=== PATIENT | female | born 1980 | race Caucasian/White ===

== ENCOUNTER 2019-07-12 12:07 | Emergency (ER) | payer OTHER, MEDICAID, SELFPAY ==
[2019-07-12 12:05] VITALS: BP 146/86; PULSE 107; RESP 20; TEMP 37; O2SAT 100
--- NOTE | 2019-07-12 12:14 | ED.GENADULT ---
HPI - General Adult General Chief complaint: Toxicology Problem Stated complaint: Light headed Time Seen by Provider: 07/12/19 12:12 History of Present Illness HPI narrative: 38-year-old woman with a history of alcohol use disorder had an episode of drinking last night where she drink half a bottle of Tequila this morning was wanting to go to sleep while she was still partially intoxicated in beginning to feel hung over so she took ?2 Xanax from a friend?, 6 Benadryl and a number of melatonin. She is now shaky tachycardic and feeling worse and called 911 for help in assistance. She adamantly denies being suicidal simply wants to go to sleep and once settled into the emergency department is asking for medications to help her sleep Related Data Home Medications Medication Instructions Recorded Confirmed diphenhydramine HCl [Allergy 25 mg PO BEDTIME 07/12/19 07/12/19 (diphenhydramine)] melatonin 3 mg PO BEDTIME 07/12/19 07/12/19 Allergies Allergy/AdvReac Type Severity Reaction Status Date / Time No Known Drug Allergies Allergy Verified 07/12/19 12:23 Review of Systems Review of Systems Narrative: Limited due to intoxication, altered mental status and general malaise Patient History Medical History (Updated 07/12/19 @ 16:42 by Valorie Tyler MD) Alcohol use disorder (Acute) Social History Smoking Status: Current some day smoker Exam Narrative Exam Narrative: General: Well-nourished well-developed, tremulous, describe significant anxiety, HEENT: Dry mucous membranes, normal sclera with reactive pupils that are widely dilated, Neck: No JVD, supple Respiratory: Lungs are clear to auscultation, no wheezing no rales no rhonchi. Full and symmetrical air movement Cardiac: Tachycardic no murmurs no bruits Abdomen: Soft nontender good bowel tones, no flank pain Skin: Warm and dry, no rashes Neurologic: Grossly neurologically intact with no obvious asymmetries or abnormalities Extremities: No trauma, well perfused Psych: Cooperative but overall poor insight Initial Vital Signs Initial Vital Signs: Vital Signs Temperature 98.6 F 07/12/19 12:05 Pulse Rate 107 H 07/12/19 12:05 Respiratory Rate 20 07/12/19 12:05 Blood Pressure 146/86 H 07/12/19 12:05 Pulse Oximetry 100 07/12/19 12:05 Course Orders Ordered: ED Orders 07/12/19 12:13 Urine Drug Screen, Rapid Stat 07/12/19 12:58 Acetaminophen Stat Complete Blood Count AUTO DIFF Stat Comprehensive Metabolic Panel Stat Ethanol (ETOH) Stat Salicylate Stat Sodium Chloride (Normal Saline 0.9%) 1,000 mls @ 150 mls/hr IV CONT ADELA Last Infusion: 07/12/19 16:03 Dose: 0 mls/hr Documented by: Admin: 07/12/19 13:55 Dose: 1,000 mls/hr Documented by: MATTHEW Discontinued Medications Sodium Chloride (Normal Saline 0.9%) 1,000 mls @ 1,000 mls/hr IV BOLUS ONE Stop: 07/12/19 13:11 Last Infusion: 07/12/19 13:55 Dose: 0 mls/hr Documented by: Admin: 07/12/19 13:03 Dose: 1,000 mls/hr Documented by: MATTHEW Vital Signs Vital signs: Vital Signs - 8 hr 07/12/19 12:05 07/12/19 12:46 07/12/19 13:30 Temperature 98.6 F Pulse Rate 107 H 101 H 101 H Respiratory Rate 20 18 17 Blood Pressure 146/86 H Blood Pressure [Right Arm] 130/82 127/80 Pulse Oximetry 100 99 99 07/12/19 15:00 07/12/19 16:00 Temperature Pulse Rate 98 H 98 H Respiratory Rate 14 Blood Pressure Blood Pressure [Right Arm] 122/78 136/72 Pulse Oximetry 99 Medical Decision Making Medical Records Medical records reviewed: Yes I reviewed the patient's medical records. Lab Data Lab results reviewed: Yes I reviewed the patient's lab results. Lab results narrative: AST an ALT are elevated suggesting possibility of alcoholic hepatitis and possibly more alcohol use than she had initially suggested Result diagrams: 07/12/19 12:58 07/12/19 12:58 Labs: Lab Results 07/12/19 07/12/19 07/12/19 Range/Units 12:58 12:58 12:58 WBC 9.0 (4.5-11.0) X10^3/uL RBC 4.35 (4.0-5.2) X10^6/uL Hgb 13.7 (12.0-16.0) g/dL Hct 39.6 (36-46) % MCV 90.9 (80-100) fL MCH 31.6 (26-34) PG MCHC 34.7 (30-36) % RDW 12.8 (11.6-14.8) % Plt Count 181 (150-400) X10^3/uL Neut % (Auto) 76.3 H (50-75) % Lymph % (Auto) 17.9 L (25-40) % [place] % (Auto) 4.8 (3-14) % Eos % (Auto) 0.4 L (2-4) % Baso % (Auto) 0.6 (0-2) % Neut # (Auto) 6900 (1985-9508) /uL Lymph # (Auto) 1600 (8134-0471) /uL [place] # (Auto) 400 (0-900) /uL Eos # (Auto) 0 (0-450) /uL Baso # (Auto) 100 (0-100) /uL Sodium 135 L (137-145) mmol/L Potassium 3.4 (3.4-5.1) mmol/L Chloride 94 L (98-107) mmol/L Carbon Dioxide 35 H (22-32) mmol/L BUN 14 (7-17) mg/dL Creatinine 0.50 L (0.52-1.04) mg/dL Estimated GFR > 60.0 (>60) mL/min BUN/Creatinine Ratio 28.0 H (6-22) Glucose 125 H (70-100) mg/dL Calcium 9.3 (8.4-10.2) mg/dL Total Bilirubin 1.3 (0.2-1.3) mg/dL AST 470 H (14-36) IU/L ALT 317 H (<35) IU/L Alkaline Phosphatase 100 (38-126) U/L Total Protein 7.6 (6.3-8.2) g/dL Albumin 4.3 (3.5-5.0) g/dL Globulin 3.3 (1.7-4.1) g/dL Albumin/Globulin Ratio 1.3 (1.0-2.8) Salicylates < 1.0 (<20) mg/dL Acetaminophen < 10 L (10-30) ug/mL Ethyl Alcohol < 10 ( - 10) mg/dL Point of Care Testing Test Results Negative Point of care testing: Point of Care Testing Test Results Negative MDM Narrative Medical decision making narrative: KIEL report was generated for this patient in indicated she was at [facility] emergency room yesterday complaining of hallucinations that have been worsening over a week. She had a workup at that time that was relatively unremarkable with a urine tox that showed only THC. She states that her last alcohol drink was a week prior to that she was not having any additional withdrawal symptoms and has never had a loose Nations with alcohol withdrawal before. She was discharged home in satisfactory condition [id number] findings are reviewed with patient and she is re-examined. Much better and much more alert at this time. She notes that over last week she has been having trace dark shadows at the edges of her vision which is what she was complaining of at [facility] yesterday. These are better today. We talked about how this can be a side effect of Benadryl due to the anticholinergic effects. Her descriptions are much more consistent with anti cholinergic hallucinations rather than alcohol withdrawal hallucinations. He had a nice discussion about the importance of treating her drinking, avoiding binge drinking and how drinking and withdrawal symptoms can significantly exacerbate anxiety. We also talked about the possibility that there are very effective treatments for anxiety and she needs to contact primary care provider to talk about some of these. At this point she is safe for home discharge Discharge Plan Departure Patient Disposition: Home Clinical Impression: Alcohol use disorder, Hallucination, visual, Anxiety Adverse drug reaction Qualifiers: Encounter type: initial encounter Qualified Code(s): T50.905A - Adverse effect of unspecified drugs, medicaments and biological substances, initial encounter Insomnia Qualifiers: Insomnia type: unspecified Qualified Code(s): G47.00 - Insomnia, unspecified Instructions: DI for Drug Overdose in Adults Activity Restrictions/Additional Instructions: Thank you for coming in I think that the side effects that you are experiencing are all due to taking too much Benadryl and from the anticholinergic receptors. I would encourage you to stop taking Benadryl as this may be contributing to the visual hallucinations that you have been having over the last week. I would also encourage you to completely stop drinking alcohol until you have your anxiety and insomnia issues better addressed. The alcohol may well be contributing to both. I am going to recommend that you follow-up with our provider access line at [phone] for help in finding an outpatient provider to discuss your chronic anxiety, insomnia as well as alcohol use disorder I wish you the very best Prescriptions: No Action diphenhydramine HCl [Allergy (diphenhydramine)] 25 mg Capsule 25 mg PO BEDTIME RF: 0 melatonin 3 mg Capsule 3 mg PO BEDTIME RF: 0
[2019-07-12 12:46] VITALS: BP 130/82; PULSE 101; RESP 18; O2SAT 99
[2019-07-12] MEDS: SODIUM CHLORIDE 0.9% 1,000 ML 1000 ML IV ×2 (13:03→13:55)
[2019-07-12 13:06] LABS: Add Manual Diff / Slide Review NO; Basophils Absolute Auto 100 /uL (0-100); Basophils Percent Auto 0.6 % (0-2); Eosinophils Absolute Auto 0 /uL (0-450); Eosinophils Percent Auto 0.4 % (2-4); Hematocrit 39.6 % (36-46); Hemoglobin 13.7 g/dL (12.0-16.0); Lymphocytes Absolute Auto 1600 /uL (1100-4500); Lymphocytes Percent Auto 17.9 % (25-40); Mean Corpuscular HGB Conc 34.7 % (30-36); Mean Corpuscular Hemoglobin 31.6 PG (26-34); Mean Corpuscular Volume 90.9 fL (80-100); Monocytes Absolute Auto 400 /uL (0-900); Monocytes Percent Auto 4.8 % (3-14); Neutrophils Absolute Auto 6900 /uL (1500-7000); Neutrophils Percent Auto 76.3 % (50-75); Platelet Count 181 X10^3/uL (150-400); Red Blood Cell Count 4.35 X10^6/uL (4.0-5.2); Red Cell Distribution Width 12.8 % (11.6-14.8)
[2019-07-12 13:16] LABS: Acetaminophen < 10 ug/mL (10-30); Ethanol (ETOH) < 10 mg/dL; Salicylate < 1.0 mg/dL (<20)
[2019-07-12 13:17] LABS: Alanine Aminotransferase 317 IU/L (<35); Albumin 4.3 g/dL (3.5-5.0); Albumin Globulin Ratio 1.3 (1.0-2.8); Alkaline Phosphatase 100 U/L (38-126); Aspartate Aminotransferase 470 IU/L (14-36); Bilirubin Total 1.3 mg/dL (0.2-1.3); Blood Urea Nitrogen 14 mg/dL (7-17); Calcium 9.3 mg/dL (8.4-10.2); Carbon Dioxide 35 mmol/L (22-32); Chloride 94 mmol/L (98-107); Estimated Glomerular Filt Rate > 60.0 mL/min (>60); Globulin 3.3 g/dL (1.7-4.1); Glucose 125 mg/dL (70-100); HEMOLYSIS < 15 (0-50); Potassium 3.4 mmol/L (3.4-5.1); Sodium 135 mmol/L (137-145); Total Protein 7.6 g/dL (6.3-8.2)
[2019-07-12 13:30] VITALS: BP 127/80; PULSE 101; RESP 17; O2SAT 99
[2019-07-12 15:00] VITALS: BP 122/78; PULSE 98
[2019-07-12 16:00] VITALS: BP 136/72; PULSE 98; RESP 14; O2SAT 99
[2019-07-12 17:04] LABS: Ur Creatinine 20 (Normal); Ur Specific Gravity 1.015 (Normal); Urine pH 7 (Normal)
[2019-07-12 17:05] LABS: UR Morphine/Opiate cutoff 300 Negative (Negative); Urine Amphetamines Negative (Negative); Urine Barbiturates Negative (Negative); Urine Benzodiazepines Negative (Negative); Urine Cocaine Negative (Negative); Urine MDMA Negative (Negative); Urine Methadone Negative (Negative); Urine Methamphetamines Negative (Negative); Urine Oxycodone Negative (Negative); Urine Phencyclidine Negative (Negative); Urine Tetrahydrocannabinol Negative (Negative); Urine Tricyclic Antidepressant Negative (Negative)
== END 2019-07-12 17:09 | disposition home or self-care (01) ==
PROVIDERS: Emergency Provider Emergency Medicine
DX: F10.10 Alcohol abuse, uncomplicated (principal); R44.1 Visual hallucinations; T50.905A Adverse effect of unspecified drugs, medicaments and biological substances, initial encounter; G47.00 Insomnia, unspecified
CPT/HCPCS: 36415; 80053; 80305; 80320; 80329; 81025; 85025; 96360; 96361; 99284; G0480

== ENCOUNTER 2019-09-13 11:08 | Emergency (ER) | payer OTHER, MEDICAID, SELFPAY ==
[2019-09-13] VITALS (9 sets, daily range): BP systolic 105–138; BP diastolic 56–93; PULSE 111–150; RESP 16–40; TEMP 36.8; O2SAT 91–99
[2019-09-13 12:11] LABS: Ur Creatinine Normal (Normal); Ur Specific Gravity Normal (Normal); Urine pH Normal (Normal)
[2019-09-13 12:12] LABS: UR Morphine/Opiate cutoff 300 Negative (Negative); Urine Amphetamines Negative (Negative); Urine Barbiturates Negative (Negative); Urine Benzodiazepines Negative (Negative); Urine Cocaine Negative (Negative); Urine MDMA Negative (Negative); Urine Methadone Negative (Negative); Urine Methamphetamines Negative (Negative); Urine Oxycodone Negative (Negative); Urine Phencyclidine Negative (Negative); Urine Tetrahydrocannabinol Negative (Negative); Urine Tricyclic Antidepressant Negative (Negative)
[2019-09-13] MEDS: SODIUM CHLORIDE 0.9% 1,000 ML 1000 ML IV (12:28)
[2019-09-13 12:29] LABS: RBC Urine None Seen (0-5/HPF)
[2019-09-13 12:34] LABS: Add Manual Diff / Slide Review NO; Basophils Absolute Auto 100 /uL (0-100); Basophils Percent Auto 1.1 % (0-2); Eosinophils Absolute Auto 0 /uL (0-450); Hematocrit 47.4 % (36-46); Hemoglobin 16.5 g/dL (12.0-16.0); Lymphocytes Absolute Auto 2800 /uL (1100-4500); Lymphocytes Percent Auto 35.2 % (25-40); Mean Corpuscular HGB Conc 34.8 % (30-36); Mean Corpuscular Hemoglobin 32.7 PG (26-34); Mean Corpuscular Volume 94.2 fL (80-100); Monocytes Absolute Auto 300 /uL (0-900); Monocytes Percent Auto 3.4 % (3-14); Neutrophils Absolute Auto 4700 /uL (1500-7000); Neutrophils Percent Auto 60.3 % (50-75); Platelet Count 399 X10^3/uL (150-400); Red Blood Cell Count 5.03 X10^6/uL (4.0-5.2); Red Cell Distribution Width 13.4 % (11.6-14.8); White Blood Cell Count 7.9 X10^3/uL (4.5-11.0)
[2019-09-13 12:40] LABS: Amorphous Sediment Urine 2+; Squamous Epithelial Cell Urine 1-5 /HPF (0-5/HPF); WBC Urine 1-5/HPF (0-5/HPF)
[2019-09-13 12:40] LABS: Alanine Aminotransferase 78 IU/L (<35); Albumin 4.9 g/dL (3.5-5.0); Albumin Globulin Ratio 1.3 (1.0-2.8); Alkaline Phosphatase 122 U/L (38-126); Aspartate Aminotransferase 121 IU/L (14-36); BUN Creatinine Ratio 22.7 (6-22); Bilirubin Total 0.5 mg/dL (0.2-1.3); Bilirubin Unconjugated 0.3 mg/dL (0.0-1.1); Blood Urea Nitrogen 15 mg/dL (7-17); Calcium 8.5 mg/dL (8.4-10.2); Carbon Dioxide 26 mmol/L (22-32); Chloride 95 mmol/L (98-107); Estimated Glomerular Filt Rate > 60.0 mL/min (>60); Globulin 3.7 g/dL (1.7-4.1); Glucose 115 mg/dL (70-100); HEMOLYSIS < 15 (0-50); Lipase 100 U/L (23-300); Magnesium 2.6 mg/dL (1.6-2.3); Potassium 4.5 mmol/L (3.4-5.1); Sodium 141 mmol/L (137-145); Total Protein 8.6 g/dL (6.3-8.2)
[2019-09-13 12:41] LABS: Bacteria Urine Moderate (10-30); Culture Indicated Urine Specimen Cultured; Mucus Urine 1+ (Negative)
[2019-09-13 12:47] LABS: Ethanol (ETOH) 316 mg/dL
--- NOTE | 2019-09-13 12:56 | ED_ITS ---
HPI - Alcohol <GRAEME Kauffman - Last Filed: 09/13/19 20:47> General Chief Complaint: Toxicology Problem Stated Complaint: Detox Time Seen by Provider: 09/13/19 12:06 Source: EMS Mode of arrival: EMS History of Present Illness HPI narrative: 39yo female with a history of anxiety and alcohol use disorder (seen on 07/12/2019 for the same) , presents emergency department today requesting detox. She states today she drank a 10 pack of beer and a bottle of Tequila. She states she frequently drinks a 12 pack in 1-2 bottles of Tequila a day. However, she states she has been sober for the past 6 months. Three days ago her boyfriend offered her a glass of wine and she took a drink which led to excessive drinking for the past 3 days. Patient states ?and now he is really mad at me ?. Patient states ?I drink so much and I really need help. Patient states before she came here I took a pill that was given me ?, unsure exactly with the pill was, thinks it may be anxiety medication but is unsure. Patient is tearful, was talking to a friend on the phone prior to interview. Patient denies any complaints such as chest pain, shortness of breath, fevers, abdominal pain, nausea, vomiting, diarrhea, dizziness, suicidal ideation, or any homicidal ideation. Patient agrees to talk to BUSINESS CONTINUITY COORDINATOR about options. Patient denies any auditory or visual hallucinations. Related Data Home Medications Medication Instructions Recorded Confirmed diphenhydramine HCl [Allergy 25 mg PO BEDTIME 07/12/19 07/12/19 (diphenhydramine)] melatonin 3 mg PO BEDTIME 07/12/19 07/12/19 Allergies Allergy/AdvReac Type Severity Reaction Status Date / Time No Known Drug Allergies Allergy Verified 07/12/19 12:23 Review of Systems <GRAEME Kauffman - Last Filed: 09/13/19 20:47> Review of Systems Narrative: REVIEW OF SYSTEMS: GENERAL: Denies fever or chills. HENT: No head trauma, hearing loss or sore throat. EYES: No vision changes. CARDIOVASCULAR: No chest pain or syncope. RESPIRATORY: No shortness of breath or cough. GASTROINTESTINAL: No nausea, vomiting, diarrhea, or constipation. GENITOURINARY: No flank pain or dysuria. MUSCULOSKELETAL: No pain, weakness, or deformities. INTEGUMENTARY: No rash, lesions, or pruritus. NEURO: No numbness, tingling, memory loss, or confusion. PSYCH: Reports anxiety, reports alcohol abuse, see HPI. Patient History <GRAEME Kauffman - Last Filed: 09/13/19 20:47> Medical History Alcohol use disorder (Acute) Social History Smoking Status: Current some day smoker Smoking Status: Current some day smoker alcohol intake frequency: 0-2 drinks per day Substance Use Type: does not use Exam <GRAEME Kauffman - Last Filed: 09/13/19 20:47> Initial Vital Signs Initial Vital Signs: Vital Signs Temperature 98.2 F 09/13/19 11:24 Pulse Rate 128 H 09/13/19 11:24 Respiratory Rate 18 09/13/19 11:24 Blood Pressure 120/82 09/13/19 11:24 Pulse Oximetry 91 09/13/19 11:24 PHYSICAL EXAMINATION: GENERAL: Well groomed, alert, and cooperative. Answers questions promptly, tearful, rambling. Vital signs noted. HENT: Normocephalic, atraumatic. Ear canals patent. Oral mucosa is pink and moist. EYES: Conjunctiva pink, sclera white, no periorbital swelling. CHEST: Normal to inspection and without deformities. CARDIOVASCULAR: S1 and S2 sounds normal. Tachycardia, no murmurs, clicks, or bruits. No pedal edema. RESPIRATORY: Normal respiratory rate, trachea midline, airway patent. No stridor, nasal flaring or accessory muscle use. Lungs are clear in all worrell without wheeze, rhonchi, or crackles. GASTROINTESTINAL: Bowel sounds normoactive. Abdomen is soft and non-tender. No organomegaly. MUSCULOSKELETAL: Normal gait and coordination. Equal tone and mass bilaterally. EXTREMITIES: CMS intact. Moves all extremities. SKIN: Warm, dry, soft, appropriate color for ethnicity. No lesions, rashes, or wounds. NEURO: Alert and Oriented X 3. PSYCH: Tearful, reports she is feeling anxious, rambling pressured speech. <Gabriele Salinas MD - Last Filed: 09/14/19 07:42> Initial Vital Signs Initial Vital Signs: Vital Signs Temperature 98.2 F 09/13/19 11:24 Pulse Rate 128 H 09/13/19 11:24 Respiratory Rate 18 09/13/19 11:24 Blood Pressure 120/82 09/13/19 11:24 Pulse Oximetry 91 09/13/19 11:24 Course <GRAEME Kauffman - Last Filed: 09/13/19 20:47> Course Course Narrative: 1800: Patient awake and alert, talking with boyfriend, BUSINESS CONTINUITY COORDINATOR attempted to talk to patient, patient refused at this time. 1900: I spoke with patient, discussed laboratory results. Offered detox at this time. Patient does not want to do inpatient detox and like to be discharged. She agreed to talk to BUSINESS CONTINUITY COORDINATOR outpatient options. Orders Ordered: Discontinued Medications Haloperidol (Haldol) 1 mg IV NOW ONE Stop: 09/13/19 14:24 Last Admin: 09/13/19 14:31 Dose: 1 mg Documented by: LIANA Sodium Chloride (Normal Saline 0.9%) 1,000 mls @ 1,000 mls/hr IV BOLUS ONE Stop: 09/13/19 12:19 Last Infusion: 09/13/19 15:13 Dose: 0 mls/hr Documented by: Admin: 09/13/19 12:28 Dose: 1,000 mls/hr Documented by: LIANA Magnesium Sulfate 2 gm/ Folic Acid 1 mg/ Thiamine HCl 100 mg / Multivitamins 10 ml/ Sodium Chloride 1,015.2 mls @ 125 mls/hr IV NOW ONE Stop: 09/13/19 23:01 Last Admin: 09/13/19 15:42 Dose: 125 mls/hr Documented by: LIANA Lorazepam (Ativan) 1 mg IV NOW ONE Stop: 09/13/19 14:23 Last Admin: 09/13/19 14:31 Dose: 1 mg Documented by: LIANA Lorazepam (Ativan) 2 mg PO NOW ONE Stop: 09/13/19 19:11 Last Admin: 09/13/19 19:47 Dose: 2 mg Documented by: VERENA Consultations Consultation #1: Patient staffed with Dr. Salinas discussed vital signs, tachycardia, symptoms, chief complaint, test results, and further testing. Patient staffed with Dr. Patrick, discussed plan, vital signs, test results, and plan of care. Vital Signs Vital signs: Vital Signs - 8 hr 09/13/19 12:35 09/13/19 14:23 09/13/19 15:00 Pulse Rate 131 H 150 H 114 H Respiratory Rate 27 H 40 H 16 Blood Pressure Blood Pressure [Right Arm] 129/93 H 127/81 105/56 L Pulse Oximetry 97 99 95 09/13/19 16:04 09/13/19 16:30 09/13/19 17:25 Pulse Rate 111 H 116 H 117 H Respiratory Rate 16 20 17 Blood Pressure Blood Pressure [Right Arm] 138/83 112/60 106/57 L Pulse Oximetry 95 95 98 09/13/19 18:30 09/13/19 19:36 Pulse Rate 122 H 116 H Respiratory Rate 17 16 Blood Pressure 110/72 Blood Pressure [Right Arm] 112/68 Pulse Oximetry 99 97 <Gabriele Salinas MD - Last Filed: 09/14/19 07:42> Orders Ordered: Discontinued Medications Haloperidol (Haldol) 1 mg IV NOW ONE Stop: 09/13/19 14:24 Last Admin: 09/13/19 14:31 Dose: 1 mg Documented by: LIANA Sodium Chloride (Normal Saline 0.9%) 1,000 mls @ 1,000 mls/hr IV BOLUS ONE Stop: 09/13/19 12:19 Last Infusion: 09/13/19 15:13 Dose: 0 mls/hr Documented by: Admin: 09/13/19 12:28 Dose: 1,000 mls/hr Documented by: LIANA Magnesium Sulfate 2 gm/ Folic Acid 1 mg/ Thiamine HCl 100 mg / Multivitamins 10 ml/ Sodium Chloride 1,015.2 mls @ 125 mls/hr IV NOW ONE Stop: 09/13/19 23:01 Last Admin: 09/13/19 15:42 Dose: 125 mls/hr Documented by: LIANA Lorazepam (Ativan) 1 mg IV NOW ONE Stop: 09/13/19 14:23 Last Admin: 09/13/19 14:31 Dose: 1 mg Documented by: LIANA Lorazepam (Ativan) 2 mg PO NOW ONE Stop: 09/13/19 19:11 Last Admin: 09/13/19 19:47 Dose: 2 mg Documented by: VERENA Vital Signs Vital signs: Vital Signs - 8 hr 09/13/19 12:35 09/13/19 14:23 09/13/19 15:00 Pulse Rate 131 H 150 H 114 H Respiratory Rate 27 H 40 H 16 Blood Pressure Blood Pressure [Right Arm] 129/93 H 127/81 105/56 L Pulse Oximetry 97 99 95 09/13/19 16:04 09/13/19 16:30 09/13/19 17:25 Pulse Rate 111 H 116 H 117 H Respiratory Rate 16 20 17 Blood Pressure Blood Pressure [Right Arm] 138/83 112/60 106/57 L Pulse Oximetry 95 95 98 09/13/19 18:30 09/13/19 19:36 Pulse Rate 122 H 116 H Respiratory Rate 17 16 Blood Pressure 110/72 Blood Pressure [Right Arm] 112/68 Pulse Oximetry 99 97 MDM - Alcohol <Livier GRAEME Montiel - Last Filed: 09/13/19 20:47> Medical Records Attestation: I reviewed the patient's medical records. Lab Data Attestation: I reviewed the patient's lab results. Result diagrams: 09/13/19 12:15 09/13/19 12:15 Labs: Lab Results 09/13/19 09/13/19 09/13/19 Range/Units 11:35 11:35 12:15 WBC 7.9 (4.5-11.0) X10^3/uL RBC 5.03 (4.0-5.2) X10^6/uL Hgb 16.5 H (12.0-16.0) g/dL Hct 47.4 H (36-46) % MCV 94.2 (80-100) fL MCH 32.7 (26-34) PG MCHC 34.8 (30-36) % RDW 13.4 (11.6-14.8) % Plt Count 399 (150-400) X10^3/uL Neut % (Auto) 60.3 (50-75) % Lymph % (Auto) 35.2 (25-40) % [place] % (Auto) 3.4 (3-14) % Eos % (Auto) 0.0 L (2-4) % Baso % (Auto) 1.1 (0-2) % Neut # (Auto) 4700 (3774-1767) /uL Lymph # (Auto) 2800 (7928-1593) /uL [place] # (Auto) 300 (0-900) /uL Eos # (Auto) 0 (0-450) /uL Baso # (Auto) 100 (0-100) /uL D-Dimer (<230) ng/mL Sodium (137-145) mmol/L Potassium (3.4-5.1) mmol/L Chloride (98-107) mmol/L Carbon Dioxide (22-32) mmol/L BUN (7-17) mg/dL Creatinine (0.52-1.04) mg/dL Estimated GFR (>60) mL/min BUN/Creatinine Ratio (6-22) Glucose (70-100) mg/dL Calcium (8.4-10.2) mg/dL Magnesium (1.6-2.3) mg/dL Total Bilirubin (0.2-1.3) mg/dL Conjugated Bilirubin (0.0-0.3) md/dL Unconjugated Bilirubin (0.0-1.1) mg/dL AST (14-36) IU/L ALT (<35) IU/L Alkaline Phosphatase (38-126) U/L Total Creatine Kinase (30-135) U/L CK-MB (CK-2) (<2.37) ng/mL CK-MB (CK-2) Rel Index (1.5-5.0) % Troponin I (0.01-0.034) ng/mL Total Protein (6.3-8.2) g/dL Albumin (3.5-5.0) g/dL Globulin (1.7-4.1) g/dL Albumin/Globulin Ratio (1.0-2.8) Lipase (23-300) U/L TSH (0.47-4.68) uIU/mL Urine RBC None seen (0-5/HPF) Urine WBC 1-5/hpf (0-5/HPF) Ur Squamous Epith Cells 1-5 /hpf (0-5/HPF) Amorphous Sediment 2+ Urine Bacteria Moderate (10-30) H (None) Urine Mucus 1+ H (Negative) Ur Culture Indicated? Specimen cultured U Opiates 300ng/mL cut Negative (Negative) Ur Oxycodone Screen Negative (Negative) Urine Methadone Screen Negative (Negative) Ur Barbiturates Screen Negative (Negative) U Tricyclic Antidepress Negative (Negative) Ur Phencyclidine Scrn Negative (Negative) Ur Amphetamines Screen Negative (Negative) U Methamphetamines Scrn Negative (Negative) Ur MDMA Scrn (Ecstasy) Negative (Negative) U Benzodiazepines Scrn Negative (Negative) Urine Cocaine Screen Negative (Negative) U Marijuana (THC) Screen Negative (Negative) Ethyl Alcohol ( - 10) mg/dL 09/13/19 09/13/19 09/13/19 Range/Units 12:15 12:15 12:15 WBC (4.5-11.0) X10^3/uL RBC (4.0-5.2) X10^6/uL Hgb (12.0-16.0) g/dL Hct (36-46) % MCV (80-100) fL MCH (26-34) PG MCHC (30-36) % RDW (11.6-14.8) % Plt Count (150-400) X10^3/uL Neut % (Auto) (50-75) % Lymph % (Auto) (25-40) % [place] % (Auto) (3-14) % Eos % (Auto) (2-4) % Baso % (Auto) (0-2) % Neut # (Auto) (3854-3765) /uL Lymph # (Auto) (9354-4213) /uL [place] # (Auto) (0-900) /uL Eos # (Auto) (0-450) /uL Baso # (Auto) (0-100) /uL D-Dimer 731 H (<230) ng/mL Sodium 141 (137-145) mmol/L Potassium 4.5 (3.4-5.1) mmol/L Chloride 95 L (98-107) mmol/L Carbon Dioxide 26 (22-32) mmol/L BUN 15 (7-17) mg/dL Creatinine 0.66 (0.52-1.04) mg/dL Estimated GFR > 60.0 (>60) mL/min BUN/Creatinine Ratio 22.7 H (6-22) Glucose 115 H (70-100) mg/dL Calcium 8.5 (8.4-10.2) mg/dL Magnesium 2.6 H (1.6-2.3) mg/dL Total Bilirubin 0.5 (0.2-1.3) mg/dL Conjugated Bilirubin 0.0 (0.0-0.3) md/dL Unconjugated Bilirubin 0.3 (0.0-1.1) mg/dL AST 121 H (14-36) IU/L ALT 78 H (<35) IU/L Alkaline Phosphatase 122 (38-126) U/L Total Creatine Kinase 795 H (30-135) U/L CK-MB (CK-2) 12.60 H (<2.37) ng/mL CK-MB (CK-2) Rel Index 1.6 (1.5-5.0) % Troponin I < 0.012 (0.01-0.034) ng/mL Total Protein 8.6 H (6.3-8.2) g/dL Albumin 4.9 (3.5-5.0) g/dL Globulin 3.7 (1.7-4.1) g/dL Albumin/Globulin Ratio 1.3 (1.0-2.8) Lipase 100 (23-300) U/L TSH (0.47-4.68) uIU/mL Urine RBC (0-5/HPF) Urine WBC (0-5/HPF) Ur Squamous Epith Cells (0-5/HPF) Amorphous Sediment Urine Bacteria (None) Urine Mucus (Negative) Ur Culture Indicated? U Opiates 300ng/mL cut (Negative) Ur Oxycodone Screen (Negative) Urine Methadone Screen (Negative) Ur Barbiturates Screen (Negative) U Tricyclic Antidepress (Negative) Ur Phencyclidine Scrn (Negative) Ur Amphetamines Screen (Negative) U Methamphetamines Scrn (Negative) Ur MDMA Scrn (Ecstasy) (Negative) U Benzodiazepines Scrn (Negative) Urine Cocaine Screen (Negative) U Marijuana (THC) Screen (Negative) Ethyl Alcohol 316 H ( - 10) mg/dL 09/13/19 09/13/19 Range/Units 12:15 17:34 WBC (4.5-11.0) X10^3/uL RBC (4.0-5.2) X10^6/uL Hgb (12.0-16.0) g/dL Hct (36-46) % MCV (80-100) fL MCH (26-34) PG MCHC (30-36) % RDW (11.6-14.8) % Plt Count (150-400) X10^3/uL Neut % (Auto) (50-75) % Lymph % (Auto) (25-40) % [place] % (Auto) (3-14) % Eos % (Auto) (2-4) % Baso % (Auto) (0-2) % Neut # (Auto) (7640-1563) /uL Lymph # (Auto) (3372-1951) /uL [place] # (Auto) (0-900) /uL Eos # (Auto) (0-450) /uL Baso # (Auto) (0-100) /uL D-Dimer (<230) ng/mL Sodium (137-145) mmol/L Potassium (3.4-5.1) mmol/L Chloride (98-107) mmol/L Carbon Dioxide (22-32) mmol/L BUN (7-17) mg/dL Creatinine (0.52-1.04) mg/dL Estimated GFR (>60) mL/min BUN/Creatinine Ratio (6-22) Glucose (70-100) mg/dL Calcium (8.4-10.2) mg/dL Magnesium (1.6-2.3) mg/dL Total Bilirubin (0.2-1.3) mg/dL Conjugated Bilirubin (0.0-0.3) md/dL Unconjugated Bilirubin (0.0-1.1) mg/dL AST (14-36) IU/L ALT (<35) IU/L Alkaline Phosphatase (38-126) U/L Total Creatine Kinase (30-135) U/L CK-MB (CK-2) (<2.37) ng/mL CK-MB (CK-2) Rel Index (1.5-5.0) % Troponin I (0.01-0.034) ng/mL Total Protein (6.3-8.2) g/dL Albumin (3.5-5.0) g/dL Globulin (1.7-4.1) g/dL Albumin/Globulin Ratio (1.0-2.8) Lipase (23-300) U/L TSH 3.57 (0.47-4.68) uIU/mL Urine RBC (0-5/HPF) Urine WBC (0-5/HPF) Ur Squamous Epith Cells (0-5/HPF) Amorphous Sediment Urine Bacteria (None) Urine Mucus (Negative) Ur Culture Indicated? U Opiates 300ng/mL cut (Negative) Ur Oxycodone Screen (Negative) Urine Methadone Screen (Negative) Ur Barbiturates Screen (Negative) U Tricyclic Antidepress (Negative) Ur Phencyclidine Scrn (Negative) Ur Amphetamines Screen (Negative) U Methamphetamines Scrn (Negative) Ur MDMA Scrn (Ecstasy) (Negative) U Benzodiazepines Scrn (Negative) Urine Cocaine Screen (Negative) U Marijuana (THC) Screen (Negative) Ethyl Alcohol 88 H ( - 10) mg/dL Point of Care Testing Test Results Negative Urine Dip Bedside Urine Glucose Negative Bedside Urine Bilirubin - Negative Bedside Urine Ketone +/- 5 Urine Specific [place] 1.020 Bedside Urine Occult Blood - Negative Bedside Urine pH 6.0 Bedside Urine Protein +/- 15 Bedside Urine Urobilinogen - Negative Bedside Urine Nitrite - Negative Bedside Urine Leukocytes +/- 15 Esterase Imaging Data CTA: Radiologist's Impressoin: [place] [address] CT Scan Report Signed Patient: Pete Green#: [id number] : 1980Acct:[id number] Age/Sex: 39 / FDate of Service: 09/13/19 Loc: ED Accession Number: [id number] Procedure: CT angio chest PE protocol Ordering Provider: Livier Montiel PROCEDURE: CT ANGIO CHEST PE PROTOCOL INDICATIONS: Tachycardia, +D-dimer TECHNIQUE: After the administration of intravenous contrast, 2 mm thick sections acquired from the pulmonary apices to the posterior costophrenic angles. 3-dimensional maximum intensity projection (MIP) coronal and sagittal reformats were then acquired through the thorax. For radiation dose reduction, the following was used: automated exposure control, adjustment of mA and/or kV according to patient size. COMPARISON: None. FINDINGS: Image quality: Limited by bolus timing. Pulmonary arteries: The bolus of the contrast injection is suboptimal. The main pulmonary artery measures approximately 150 Hounsfield units. Pulmonary artery densities are greater than 250 Hounsfield units are considered to be ideal for evaluation of pulmonary embolism. However, no large or central pulmonary emboli are seen on these images. No pulmonary emboli are seen more distally, although sensitivity for detection of such is limited on this study. Lungs and pleura: Lungs are clear. No pleural effusions or pneumothorax. Central and peripheral airways are patent. Mediastinum: Heart size is normal, without pericardial effusion. No mediastinal or hilar adenopathy. Thoracic aorta is normal in caliber and enhancement. Esophagus is normal in caliber. There is a small hiatal hernia. Bones and chest wall: No suspicious bony lesions. Ribs and thoracic spine appear intact throughout. Thyroid gland demonstrates no significant CT abnormality. No axillary or supraclavicular adenopathy. Abdomen: Diffuse fatty liver infiltration is noted. Incidental note is made of an accessory splenule along the hilum of the primary spleen. The visualized portions of the upper abdominal structures are otherwise unremarkable for imaging technique. IMPRESSION: No large or central pulmonary embolism is seen. If there is strong clinical concern for small pulmonary emboli not seen on this study, then please consider a repeat study in 24 hours. ECG Data Interpretation: Sinus tachycardia, rate 133, IL interval 123, QTC 380. No ST elevation or ST depression. No T-wave abnormality. No ectopy. EKG also viewed by Dr. Salinas. [facility] Narrative Medical decision making narrative: 39-year-old female with a history of alcohol abuse present to the emergency department for detox. She reports drinking alcohol right before coming into the emergency department. Patient reports taking ?a pill someone gave her, unsure what was called. Patient was clearly intoxicated upon arrival, blood ETOH level initially 731 patient was awake, communicating appropriately, and tearful at this time. Patient was requesting inpatient detox. She originally presented with tach ycardia in the 130s to 145, blood pressure stable, denies auditory or visual hallucinations, denied tremors. Due to sustained tachycardia, D-dimer, troponin, an EKG test were performed. Patient was given Haldol and Ativan to help with anxiety as well as tachycardia and possible withdrawals. After administration medication, patient's heart rate decreased to the 110s, occasionally up to the 130s when awake and crying. D- dimer was positive, see CT PE protocol was ordered which was negative. Patient was given fluids including a banana bag to help with alcohol affects and tachycardia. Optimally, patient denied detox and requested to have outpatient follow-up. She was given a dose of Ativan before discharge. Discussed that the use of benzos an outpatient basis is not recommended as many patients take benzos and then drink on top of this causing increased risk for sedation. Patient agreed to return emergency department for any new symptoms develop. I suspect patient's tachycardia is most likely caused from ingestion of alcohol and possible other substance, as well as anxiety. Less likely PE as stated above test were negative. Less likely infectious etiology due to lack of concerning symptoms such as dysuria or abdominal pain. Normal white blood cell count. There was a small about of bacteria noted in urine, patient denied symptoms a culture was sent to lab. Opted not to treat at this time due to patient being asymptomatic. Less likely ACS or cardiac involvement, EKG showing normal sinus rhythm without acute changes, troponin negative. Strict return precautions given and follow-up instructions discussed. Patient agreed to plan of care. <Gabriele Salinas MD - Last Filed: 09/14/19 07:42> Lab Data Labs: Lab Results 09/13/19 09/13/19 09/13/19 Range/Units 11:35 11:35 12:15 WBC 7.9 (4.5-11.0) X10^3/uL RBC 5.03 (4.0-5.2) X10^6/uL Hgb 16.5 H (12.0-16.0) g/dL Hct 47.4 H (36-46) % MCV 94.2 (80-100) fL MCH 32.7 (26-34) PG MCHC 34.8 (30-36) % RDW 13.4 (11.6-14.8) % Plt Count 399 (150-400) X10^3/uL Neut % (Auto) 60.3 (50-75) % Lymph % (Auto) 35.2 (25-40) % [place] % (Auto) 3.4 (3-14) % Eos % (Auto) 0.0 L (2-4) % Baso % (Auto) 1.1 (0-2) % Neut # (Auto) 4700 (2315-8105) /uL Lymph # (Auto) 2800 (6101-2477) /uL [place] # (Auto) 300 (0-900) /uL Eos # (Auto) 0 (0-450) /uL Baso # (Auto) 100 (0-100) /uL D-Dimer (<230) ng/mL Sodium (137-145) mmol/L Potassium (3.4-5.1) mmol/L Chloride (98-107) mmol/L Carbon Dioxide (22-32) mmol/L BUN (7-17) mg/dL Creatinine (0.52-1.04) mg/dL Estimated GFR (>60) mL/min BUN/Creatinine Ratio (6-22) Glucose (70-100) mg/dL Calcium (8.4-10.2) mg/dL Magnesium (1.6-2.3) mg/dL Total Bilirubin (0.2-1.3) mg/dL Conjugated Bilirubin (0.0-0.3) md/dL Unconjugated Bilirubin (0.0-1.1) mg/dL AST (14-36) IU/L ALT (<35) IU/L Alkaline Phosphatase (38-126) U/L Total Creatine Kinase (30-135) U/L CK-MB (CK-2) (<2.37) ng/mL CK-MB (CK-2) Rel Index (1.5-5.0) % Troponin I (0.01-0.034) ng/mL Total Protein (6.3-8.2) g/dL Albumin (3.5-5.0) g/dL Globulin (1.7-4.1) g/dL Albumin/Globulin Ratio (1.0-2.8) Lipase (23-300) U/L TSH (0.47-4.68) uIU/mL Urine RBC None seen (0-5/HPF) Urine WBC 1-5/hpf (0-5/HPF) Ur Squamous Epith Cells 1-5 /hpf (0-5/HPF) Amorphous Sediment 2+ Urine Bacteria Moderate (10-30) H (None) Urine Mucus 1+ H (Negative) Ur Culture Indicated? Specimen cultured U Opiates 300ng/mL cut Negative (Negative) Ur Oxycodone Screen Negative (Negative) Urine Methadone Screen Negative (Negative) Ur Barbiturates Screen Negative (Negative) U Tricyclic Antidepress Negative (Negative) Ur Phencyclidine Scrn Negative (Negative) Ur Amphetamines Screen Negative (Negative) U Methamphetamines Scrn Negative (Negative) Ur MDMA Scrn (Ecstasy) Negative (Negative) U Benzodiazepines Scrn Negative (Negative) Urine Cocaine Screen Negative (Negative) U Marijuana (THC) Screen Negative (Negative) Ethyl Alcohol ( - 10) mg/dL 09/13/19 09/13/19 09/13/19 Range/Units 12:15 12:15 12:15 WBC (4.5-11.0) X10^3/uL RBC (4.0-5.2) X10^6/uL Hgb (12.0-16.0) g/dL Hct (36-46) % MCV (80-100) fL MCH (26-34) PG MCHC (30-36) % RDW (11.6-14.8) % Plt Count (150-400) X10^3/uL Neut % (Auto) (50-75) % Lymph % (Auto) (25-40) % [place] % (Auto) (3-14) % Eos % (Auto) (2-4) % Baso % (Auto) (0-2) % Neut # (Auto) (4277-8543) /uL Lymph # (Auto) (9800-0408) /uL [place] # (Auto) (0-900) /uL Eos # (Auto) (0-450) /uL Baso # (Auto) (0-100) /uL D-Dimer 731 H (<230) ng/mL Sodium 141 (137-145) mmol/L Potassium 4.5 (3.4-5.1) mmol/L Chloride 95 L (98-107) mmol/L Carbon Dioxide 26 (22-32) mmol/L BUN 15 (7-17) mg/dL Creatinine 0.66 (0.52-1.04) mg/dL Estimated GFR > 60.0 (>60) mL/min BUN/Creatinine Ratio 22.7 H (6-22) Glucose 115 H (70-100) mg/dL Calcium 8.5 (8.4-10.2) mg/dL Magnesium 2.6 H (1.6-2.3) mg/dL Total Bilirubin 0.5 (0.2-1.3) mg/dL Conjugated Bilirubin 0.0 (0.0-0.3) md/dL Unconjugated Bilirubin 0.3 (0.0-1.1) mg/dL AST 121 H (14-36) IU/L ALT 78 H (<35) IU/L Alkaline Phosphatase 122 (38-126) U/L Total Creatine Kinase 795 H (30-135) U/L CK-MB (CK-2) 12.60 H (<2.37) ng/mL CK-MB (CK-2) Rel Index 1.6 (1.5-5.0) % Troponin I < 0.012 (0.01-0.034) ng/mL Total Protein 8.6 H (6.3-8.2) g/dL Albumin 4.9 (3.5-5.0) g/dL Globulin 3.7 (1.7-4.1) g/dL Albumin/Globulin Ratio 1.3 (1.0-2.8) Lipase 100 (23-300) U/L TSH (0.47-4.68) uIU/mL Urine RBC (0-5/HPF) Urine WBC (0-5/HPF) Ur Squamous Epith Cells (0-5/HPF) Amorphous Sediment Urine Bacteria (None) Urine Mucus (Negative) Ur Culture Indicated? U Opiates 300ng/mL cut (Negative) Ur Oxycodone Screen (Negative) Urine Methadone Screen (Negative) Ur Barbiturates Screen (Negative) U Tricyclic Antidepress (Negative) Ur Phencyclidine Scrn (Negative) Ur Amphetamines Screen (Negative) U Methamphetamines Scrn (Negative) Ur MDMA Scrn (Ecstasy) (Negative) U Benzodiazepines Scrn (Negative) Urine Cocaine Screen (Negative) U Marijuana (THC) Screen (Negative) Ethyl Alcohol 316 H ( - 10) mg/dL 09/13/19 09/13/19 Range/Units 12:15 17:34 WBC (4.5-11.0) X10^3/uL RBC (4.0-5.2) X10^6/uL Hgb (12.0-16.0) g/dL Hct (36-46) % MCV (80-100) fL MCH (26-34) PG MCHC (30-36) % RDW (11.6-14.8) % Plt Count (150-400) X10^3/uL Neut % (Auto) (50-75) % Lymph % (Auto) (25-40) % [place] % (Auto) (3-14) % Eos % (Auto) (2-4) % Baso % (Auto) (0-2) % Neut # (Auto) (9596-9755) /uL Lymph # (Auto) (2837-1585) /uL [place] # (Auto) (0-900) /uL Eos # (Auto) (0-450) /uL Baso # (Auto) (0-100) /uL D-Dimer (<230) ng/mL Sodium (137-145) mmol/L Potassium (3.4-5.1) mmol/L Chloride (98-107) mmol/L Carbon Dioxide (22-32) mmol/L BUN (7-17) mg/dL Creatinine (0.52-1.04) mg/dL Estimated GFR (>60) mL/min BUN/Creatinine Ratio (6-22) Glucose (70-100) mg/dL Calcium (8.4-10.2) mg/dL Magnesium (1.6-2.3) mg/dL Total Bilirubin (0.2-1.3) mg/dL Conjugated Bilirubin (0.0-0.3) md/dL Unconjugated Bilirubin (0.0-1.1) mg/dL AST (14-36) IU/L ALT (<35) IU/L Alkaline Phosphatase (38-126) U/L Total Creatine Kinase (30-135) U/L CK-MB (CK-2) (<2.37) ng/mL CK-MB (CK-2) Rel Index (1.5-5.0) % Troponin I (0.01-0.034) ng/mL Total Protein (6.3-8.2) g/dL Albumin (3.5-5.0) g/dL Globulin (1.7-4.1) g/dL Albumin/Globulin Ratio (1.0-2.8) Lipase (23-300) U/L TSH 3.57 (0.47-4.68) uIU/mL Urine RBC (0-5/HPF) Urine WBC (0-5/HPF) Ur Squamous Epith Cells (0-5/HPF) Amorphous Sediment Urine Bacteria (None) Urine Mucus (Negative) Ur Culture Indicated? U Opiates 300ng/mL cut (Negative) Ur Oxycodone Screen (Negative) Urine Methadone Screen (Negative) Ur Barbiturates Screen (Negative) U Tricyclic Antidepress (Negative) Ur Phencyclidine Scrn (Negative) Ur Amphetamines Screen (Negative) U Methamphetamines Scrn (Negative) Ur MDMA Scrn (Ecstasy) (Negative) U Benzodiazepines Scrn (Negative) Urine Cocaine Screen (Negative) U Marijuana (THC) Screen (Negative) Ethyl Alcohol 88 H ( - 10) mg/dL Point of Care Testing Test Results Negative Urine Dip Bedside Urine Glucose Negative Bedside Urine Bilirubin - Negative Bedside Urine Ketone +/- 5 Urine Specific [place] 1.020 Bedside Urine Occult Blood - Negative Bedside Urine pH 6.0 Bedside Urine Protein +/- 15 Bedside Urine Urobilinogen - Negative Bedside Urine Nitrite - Negative Bedside Urine Leukocytes +/- 15 Esterase Discharge Plan Departure Patient Disposition: Home Clinical Impression: Alcohol use disorder Discharge Date/Time: 09/13/19 19:50 Instructions: DI for Alcohol Abuse Activity Restrictions/Additional Instructions: Thank you for entrusting me with your care today. As discussed, you have been given information to follow up with [facility] as well as alcohol anonymous. You have been given a dose of Ativan in the emergency department to help with withdrawals. Please be seen with [facility] as soon as possible tomorrow. Please return to the emergency department if you develop any new or worsening symptoms such as seizures, syncope, chest pain, shortness of breath, fevers, or any other concerns. Prescriptions: No Action diphenhydramine HCl [Allergy (diphenhydramine)] 25 mg Capsule 25 mg PO BEDTIME RF: 0 melatonin 3 mg Capsule 3 mg PO BEDTIME RF: 0
--- NOTE | 2019-09-13 13:02 | PC.NURSE ---
Lola [phone]
[2019-09-13] MEDS: HALOPERIDOL 5 MG/ML VIAL 1 MG IV (14:31)
[2019-09-13] MEDS: LORazepam 2 MG/ML INJ 1 MG IV (14:31)
[2019-09-13 14:50] LABS: D Dimer 731 ng/mL (<230)
[2019-09-13 14:51] LABS: Creatine Kinase 795 U/L (30-135)
[2019-09-13 15:04] LABS: Troponin I < 0.012 ng/mL (0.01-0.034)
[2019-09-13 15:06] LABS: CKMB % Relative Index 1.6 % (1.5-5.0)
[2019-09-13 15:23] LABS: TSH w/ Reflex to FT4 3.57 uIU/mL (0.47-4.68)
--- NOTE | 2019-09-13 15:24 | DI.CT.S_ITS ---
PROCEDURE: CT ANGIO CHEST PE PROTOCOL INDICATIONS: Tachycardia, +D-dimer TECHNIQUE: After the administration of intravenous contrast, 2 mm thick sections acquired from the pulmonary apices to the posterior costophrenic angles. 3-dimensional maximum intensity projection (MIP) coronal and sagittal reformats were then acquired through the thorax. For radiation dose reduction, the following was used: automated exposure control, adjustment of mA and/or kV according to patient size. COMPARISON: None. FINDINGS: Image quality: Limited by bolus timing. Pulmonary arteries: The bolus of the contrast injection is suboptimal. The main pulmonary artery measures approximately 150 Hounsfield units. Pulmonary artery densities are greater than 250 Hounsfield units are considered to be ideal for evaluation of pulmonary embolism. However, no large or central pulmonary emboli are seen on these images. No pulmonary emboli are seen more distally, although sensitivity for detection of such is limited on this study. Lungs and pleura: Lungs are clear. No pleural effusions or pneumothorax. Central and peripheral airways are patent. Mediastinum: Heart size is normal, without pericardial effusion. No mediastinal or hilar adenopathy. Thoracic aorta is normal in caliber and enhancement. Esophagus is normal in caliber. There is a small hiatal hernia. Bones and chest wall: No suspicious bony lesions. Ribs and thoracic spine appear intact throughout. Thyroid gland demonstrates no significant CT abnormality. No axillary or supraclavicular adenopathy. Abdomen: Diffuse fatty liver infiltration is noted. Incidental note is made of an accessory splenule along the hilum of the primary spleen. The visualized portions of the upper abdominal structures are otherwise unremarkable for imaging technique. IMPRESSION: No large or central pulmonary embolism is seen. If there is strong clinical concern for small pulmonary emboli not seen on this study, then please consider a repeat study in 24 hours. Incidental note is made of: Small hiatal hernia Fatty liver infiltration Accessory splenule Dictated by: Joshua Tobias M.D. on 09/13/2019 at 15:44 Approved by: Joshua Tobias M.D. on 09/13/2019 at 15:47
[2019-09-13] MEDS: MAGNESIUM SULFATE 2 GM, FOLIC ACID 1 MG, THIAMINE 100 MG, MULTIVITAMIN 10 ML in SODIUM ... IV (15:42)
--- NOTE | 2019-09-13 15:44 | PC.NURSE ---
Patient sleeping peacefully at this time. Anxiety significantly reduced after ativan and haldol.
--- NOTE | 2019-09-13 15:47 | CM.SWNOTE ---
STACKER note STACKER checks in with RN Karen. Patient has been given medication for sleep and is not able to be assessed at this time. STACKER will attempt KERRIE assessment later in shift. CEDRICK Tucker
--- NOTE | 2019-09-13 15:49 | PC.NURSE ---
[id number] Patient's boyfriend is at the bedside and reports that he will come back to be with her after his shift at [facility] has ended. His number is [phone]. He reports that she is from her .
--- NOTE | 2019-09-13 15:51 | PC.NURSE ---
1400 Patient's anxiety is increasing, she is restless and heart rate is increased at 140bpm. She is tearful. Patient reports that consumption of alcohol often makes her more anxious. Speaking with doctor about possibly medicating the patient to calm her down so she can rest while her alcohol level comes down.
[2019-09-13 17:51] LABS: Ethanol (ETOH) 88 mg/dL
--- NOTE | 2019-09-13 18:08 | CM.SWNOTE ---
MANAGER HOME note MANAGER HOME meets with patient and begins assessment. Patient is a 39 y/o female who presents to the ED seeking detox. Patient reports drinking for past 3 days, and drinking 1 bottle of tequila and 12 beers daily. Patient reports experiencing signficant anxiety and feeling shaky while she detoxes. Patient reports not drinking for 6 months prior to this 3 days of drinking, and said that she would drink a bottle of tequila daily prior to her 6 months of sobriety. Mid-assessment, patient's boyfriend comes to visit patient. Patient requests MANAGER HOME leave and resume assessment after boyfriend leaves. MANAGER HOME will check in with patient later in shift. CEDRICK Tucker
--- NOTE | 2019-09-13 18:55 | CM.SWNOTE ---
CHROME POLISHER note CHROME POLISHER attempts to meet with patient. Patient's boyfriend Cedrick is present in room. CHROME POLISHER informs patient that provider is planning on d/c soon as her BAL has lowered signficantly and that there needs to be a discussion of plan for next steps. Patient says not right now. CHROME POLISHER reinforces that the provider is planning on a discharge soon, and informs patient that CHROME POLISHER will check back in in roughly 10 min. CHROME POLISHER staffs with provider who immediately informs patient that the discussion needs to happen now. CHROME POLISHER enters room and discusses plan with patient. CHROME POLISHER asks what patient goals are following discharge. Patient informs CHROME POLISHER that she wants to not drink. CHROME POLISHER asks what that looks like. Patient does not immediately respond. CHROME POLISHER and patient discuss steps to take over the next week. Patient states that she wants to discharge home, and will have support in home to help her as she continues to detox over the next few days. Patient initially expresses hesitation toward outpatient treatment, but agrees to contact [facility] and arrange intake following week. Cedrick provides encouragement for patient to set up appt. with outpatient provider. CHROME POLISHER and patient discuss AA. Patient states that AA had helped her remain sober over the past 6 months, but she does not know when her group will meet again due to COVID. CHROME POLISHER and patient discuss enrolling in a Zoom AA meeting during next week. Patient and Cedrick both agree to follow up with ED should symptoms worsen. Plan: Patient to discharge home CEDRICK Tucker
[2019-09-13] MEDS: LORazepam 0.5 MG TABLET 2 MG PO (19:47)
== END 2019-09-13 19:50 | disposition home or self-care (01) ==
PROVIDERS: Emergency Medicine; Emergency Provider Nurse Practitioner
DX: F10.10 Alcohol abuse, uncomplicated (principal); R00.0 Tachycardia, unspecified
CPT/HCPCS: 36415; 71275; 80053; 80076; 80305; 80320; 81003; 81015; 81025; 82550; 82553; 83690; 83735; 84443; 84484; 85025; 85379; 87086; 93005; 96361; 96374; 96375; 99284; J1630; J2060; J3475; Q9967

== ENCOUNTER → 2021-04-06 17:50 | Outpatient (CLI) | payer OTHER, MEDICAID, SELFPAY ==
[2021-04-06 19:18] LABS: HCG Quantitative /Beta subunit 37022 mIU/mL
== END ==
PROVIDERS: Referring Provider Obstetrics & Gynecology; Visit Provider Obstetrics & Gynecology
DX: Z34.81 Encounter for supervision of other normal pregnancy, first trimester (principal)
CPT/HCPCS: 36415; 84702

== ENCOUNTER → 2021-04-08 17:48 | Outpatient (CLI) | payer OTHER, MEDICAID, SELFPAY ==
[2021-04-08 19:09] LABS: HCG Quantitative /Beta subunit 49578 mIU/mL
== END ==
PROVIDERS: Referring Provider Obstetrics & Gynecology; Visit Provider Obstetrics & Gynecology
DX: Z34.81 Encounter for supervision of other normal pregnancy, first trimester (principal)
CPT/HCPCS: 36415; 84702

== ENCOUNTER → 2021-04-21 08:24 | Outpatient (CLI) | payer OTHER, MEDICAID, SELFPAY ==
[2021-04-21 09:06] LABS: Add Manual Diff / Slide Review NO; Appearance Urine UA SL CLOUDY; Basophils Absolute Auto 0 /uL (0-100); Basophils Percent Auto 0.5 % (0-2); Bilirubin Urine UA NEGATIVE (NEGATIVE); Color Urine UA YELLOW; Eosinophils Absolute Auto 100 /uL (0-450); Eosinophils Percent Auto 1.1 % (2-4); Glucose Urine UA NEGATIVE (Negative); Hematocrit 38.8 % (36-46); Hemoglobin 13.5 g/dL (12.0-16.0); Ketones Urine UA NEGATIVE (NEGATIVE); Leukocyte Esterase Urine UA NEGATIVE (NEGATIVE); Lymphocytes Absolute Auto 2500 /uL (1100-4500); Lymphocytes Percent Auto 32.3 % (25-40); Mean Corpuscular HGB Conc 34.7 % (30-36); Mean Corpuscular Volume 92.2 fL (80-100); Monocytes Absolute Auto 700 /uL (0-900); Monocytes Percent Auto 9.1 % (3-14); Neutrophils Absolute Auto 4500 /uL (1500-7000); Nitrite Urine UA NEGATIVE (Negative); Occult Blood Urine UA NEGATIVE (Negative); Platelet Count 308 X10^3/uL (150-400); Protein Urine UA TRACE (Negative); Red Blood Cell Count 4.21 X10^6/uL (4.0-5.2); Red Cell Distribution Width 13.4 % (11.6-14.8); Urobilinogen Urine UA 0.2 E.U./dL (0.2); White Blood Cell Count 7.8 X10^3/uL (4.5-11.0)
[2021-04-21 15:28] LABS: Hepatitis B Surface Antigen NEGATIVE s/c (NEGATIVE); Rubella Antibody IgG 1.5 IU/mL (>15)
[2021-04-21 15:32] LABS: HIV 1 & 2 Ab/Ag 4th Gen Combo NEGATIVE (NEGATIVE); Hep C Virus Ab w/Reflex Quant NEGATIVE s/c (NEGATIVE)
[2021-04-22 07:15] LABS: Varicella IgG Antibody 745 index (Immune >165)
[2021-04-22 07:36] LABS: RPR Screen Non Reactive (Non Reactive)
== END ==
PROVIDERS: Referring Provider Obstetrics & Gynecology; Visit Provider Obstetrics & Gynecology
DX: Z34.00 Encounter for supervision of normal first pregnancy, unspecified trimester (principal)
CPT/HCPCS: 36415; 80055; 81003; 86787; 86803; 86850; 86900; 86901; 87077; 87086; 87389

== ENCOUNTER → 2021-04-28 14:51 | Outpatient (CLI) | payer OTHER, MEDICAID, SELFPAY ==
[2021-04-28 16:05] LABS: Specimen Label NATARA KIT
== END ==
PROVIDERS: Referring Provider Obstetrics & Gynecology; Visit Provider Obstetrics & Gynecology
DX: O09.521 Supervision of elderly multigravida, first trimester (principal); Z36.0 Encounter for antenatal screening for chromosomal anomalies; Z3A.10 10 weeks gestation of pregnancy
CPT/HCPCS: 36415

== ENCOUNTER → 2021-05-24 15:37 | Outpatient (CLI) | payer OTHER, MEDICAID, SELFPAY ==
[2021-05-24 16:34] LABS: COVID19 -Nasal RAPID Negative (Negative)
== END ==
PROVIDERS: PCP Family Medicine; Referring Provider Obstetrics & Gynecology; Visit Provider Obstetrics & Gynecology
DX: Z01.812 Encounter for preprocedural laboratory examination (principal); Z20.822 Contact with and (suspected) exposure to COVID-19
CPT/HCPCS: 87635

== ENCOUNTER 2021-05-26 06:50 | Day surgery (SDC) | payer OTHER, MEDICAID, SELFPAY ==
[2021-05-25 12:14] VITALS: BMI 32.1
[2021-05-26] VITALS (7 sets, daily range): BP systolic 125–150; BP diastolic 88–96; PULSE 105–131; RESP 16–18; TEMP 36–36.6; O2SAT 94–98; BMI 32.1
--- NOTE | 2021-05-26 07:21 | SUR.OPER ---
Lithotomy on padded OR bed, head on pillow, arms secured on padded arm boards at <90 degrees abduction. Legs secured in padded yellow fins stirrups.
[2021-05-26] MEDS: LACTATED RINGERS 1,000 ML 42 ML IV (07:24)
--- NOTE | 2021-05-26 07:39 | P.HP_ITS ---
History of Present Illness History of Present Illness Date Patient Seen: 05/26/21 Time Patient Seen: 07:39 Chief complaint: SORIANO CERVICAL CERCLAGE Narrative: Patient is a 40 year old at 13 weeks gestation who presents for a Soriano Cervical cerclage due to an incompetent cervix. Patient History Medical History Alcohol use disorder Anemia Anxiety Chlamydia (~2014) Dizzy Hearing loss Family & Social History Family History (Updated 04/26/21 @ 20:36 by Libra Fernandez) Grandmother Anemia Hypertension Diabetes mellitus Mother Autosomal recessive severe combined immunodeficiency disease Grandfather Dementia Social History: household members friend(s) lives independently Yes caregiver/support person Yes Tobacco & Substance use: Smoking Status Former smoker alcohol intake former alcohol intake frequency 0-2 drinks per day Substance Use Type does not use Meds Home Medications and Allergies Home Medications Medication Instructions Recorded Confirmed Type diphenhydramine HCl 25 mg capsule 25 mg PO BEDTIME 07/12/19 05/26/21 History (Allergy (diphenhydramine)) melatonin 3 mg capsule 3 mg PO BEDTIME 07/12/19 05/26/21 History prenat.vits,lyly,dxd-dttc-hnvxl 1 tab PO DAILY #90 tab 04/08/21 05/26/21 Rx theanine 200 mg capsule 200 mg PO DAILY 04/13/21 05/26/21 History hydroxyprogest(PF)(preg presv) 275 275 mg (1.1 mL) SUBCUT QWEEK 180 04/19/21 05/26/21 Rx mg/1.1 mL subcut auto-inject Days #4.4 ml ([place] (PF)) hydroxyzine HCl 25 mg tablet 25 mg PO BID PRN #60 tab 04/28/21 05/25/21 Rx Allergies Allergy/AdvReac Type Severity Reaction Status Date / Time orange juice AdvReac Mild mouth Verified 05/26/21 06:43 irritation aloe vera Allergy Unknown Hives Uncoded 05/26/21 07:38 Exam Vital Signs (past 8 hours): - 05/26/21 07:06 Temperature 97.8 F Pulse Rate 117 H Respiratory Rate 18 Blood Pressure 127/93 H Pulse Oximetry 96 Oxygen Delivery Method Room Air Narrative Exam Narrative: HEENT: No thyromegaly, no anterior cervical or supraclavicular lymphadenopathy. Lungs:Clear to auscultation bilaterally, no wheezes. Cardiovascular: Regular rate and rhythm, no murmurs, rubs, or gallops. Abdomen: No scars. No hepatosplenomegaly. No masses palpable. External genitalia: Normal Vagina: Normal Cervix: Normal Bimanual exam: 13 Week size uterus. Mobile. Extremities: No edema Assessment & Plan Assessment & Plan narrative: Assessment: 40-year-old 2 para 0 at 13 weeks gestation with an incompetent cervix Plan: [place] cervical cerclage The risks, benefits, and alternatives to the procedure were explained to the patient. The risks including bleeding, infection, rupture of membranes, or loss of the . She understands these risks and agrees to proceed. A full par Q was held and consent form was signed. COVID-19 COVID-19 status: Negative Result date/Date tested (Pos, Neg/Pending): 05/24/21 Time Spent With Patient Time with patient: less than 30 minutes Critical Care time: I spent a total of [] minutes of critical care time on this patient's care today; this time is exclusive of procedural time.
--- NOTE | 2021-05-26 07:44 | PM.PREOP ---
Pre-operative Note COVID-19 COVID-19 status: Negative Result date/Date tested (Pos, Neg/Pending): 05/24/21 Criteria for continued procedure: Expected advancement of disease process Interval Note History & Physical reviewed/Exam performed by Physician: Yes Changes to H&P: No H&P completed within 30 days and has changed as indicated here:: 05/26/21
[2021-05-26] MEDS: CEFAZOLIN 2 GM/20 ML SYRINGE IV (07:55)
[2021-05-26] MEDS: INDOMETHACIN 25 MG CAPSULE 50 MG PO (07:56)
--- NOTE | 2021-05-26 08:26 | P.OP_ITS ---
Operative Date/Time/Diagnoses Date of procedure: 05/26/21 Time of procedure: 08:27 Pre-op diagnosis: Incompetent cervix Post-op diagnosis: same Procedure & Clinicians Procedure: Procedures Operation Date: 05/26/21 07:45 Actual Procedure Side Surgeon constance Stephen Cervical Circlage Not Applicable Lauren Costello MD Indications: Incompetent cervix Surgeon: Lauren Costello Anesthesia Type: General (LMA) Operative Notes Findings: 4cm long cervix Closure Type: not applicable Specimen(s): none Estimated blood loss (mL): 5 Blood products transfused: none Procedure in detail: A decision was made to proceed with this surgery during the pandemic due to the patient's history of an incompetent cervix and delivering the baby in the second trimester with a prior . If we waited there was a possibility that the cervix would open too soon and she would deliver in the second trimester again. Informed consent was obtained in the office. The patient was taken to the operating room where she was placed in the dorsal supine position. After adequate LMA general anesthesia was achieved, she was placed in the dorsal lithotomy position and prepped externally. She was then draped in the usual sterile fashion. A time-out was performed. She was then prepped with Betadine using moistened sponge sticks. A weighted speculum was placed into the vagina. The bladder was retracted out of the visual field. The anterior and posterior l ips of the cervix were grasped with ring forceps. Using the 5 mm [place] on a blunt needle, a pursestring suture was performed by going in at 12 and out at 10, in at 8 and out at 5, and in at 4 at in out at 2. The suture was cinched and tied down with 6 knots. One suture was left at 2 cm in length, and the other was left at 1 cm in length. The retractor was removed from the vagina. The weighted speculum was removed from the vagina. The small amount of blood clot was removed from the vagina. Two 25 mg indomethacin capsules were placed rectally. Sponge, lap and instrument counts were correct x2. The patient tolerated the procedure well, and was taken to PACU in stable condition. Complications: none Post-operative Condition: stable Disposition: PACU Plan for aftercare: Home after recovery
--- NOTE | 2021-05-26 09:07 | SUR.PHASEII ---
ambulates to restroom with steady gait. able too void without issues. ride called. will arrive in 15 minutes.
== END 2021-05-26 09:33 | disposition home or self-care (01) ==
PROVIDERS: PCP Family Medicine; Referring Provider Obstetrics & Gynecology; Visit Provider Obstetrics & Gynecology
PROC: 0UVC7ZZ Restriction of Cervix, Via Natural or Artificial Opening (ICD-10-PCS; CPT 57700; principal; 2021-05-26 07:45)
DX: O34.31 Maternal care for cervical incompetence, first trimester (principal); Z3A.13 13 weeks gestation of pregnancy
CPT/HCPCS: 59320; J0690; J2405; J2704; J3010

== ENCOUNTER → 2021-06-09 16:54 | Outpatient (CLI) | payer OTHER, MEDICAID, SELFPAY ==
[2021-06-11 21:08] LABS: AFP Value 46.6 ng/mL (.); Gestational Age Ultrasound (.); Insulin Dep Diabetes No (.); OSBR Risk 1IN 1309 (.); Results Report (.); Test Results *Screen Negative* (.)
== END ==
PROVIDERS: PCP Family Medicine; Referring Provider Obstetrics & Gynecology; Visit Provider Obstetrics & Gynecology
DX: Z34.82 Encounter for supervision of other normal pregnancy, second trimester (principal); Z3A.16 16 weeks gestation of pregnancy
CPT/HCPCS: 36415; 82105

== ENCOUNTER → 2021-08-16 16:08 | Outpatient (CLI) | payer OTHER, MEDICAID, SELFPAY ==
[2021-08-16 17:39] LABS: Hemoglobin 12.9 g/dL (12.0-16.0)
[2021-08-16 17:54] LABS: GTT (PREG) 1 Hour PP 50gm Dose 155 mg/dL (76-139)
== END ==
PROVIDERS: Referring Provider Obstetrics & Gynecology; Visit Provider Obstetrics & Gynecology
DX: Z34.82 Encounter for supervision of other normal pregnancy, second trimester (principal); Z3A.26 26 weeks gestation of pregnancy
CPT/HCPCS: 36415; 82950; 85014; 85018

== ENCOUNTER 2021-10-05 11:22 | Observation (INO) | payer OTHER, MEDICAID, SELFPAY ==
[2021-10-05 13:17] LABS: Appearance Urine UA CLEAR; Bilirubin Urine UA NEGATIVE (NEGATIVE); Color Urine UA YELLOW; Glucose Urine UA NEGATIVE (Negative); Ketones Urine UA NEGATIVE (NEGATIVE); Leukocyte Esterase Urine UA 2+ (NEGATIVE); Nitrite Urine UA NEGATIVE (Negative); Occult Blood Urine UA NEGATIVE (Negative); Protein Urine UA TRACE (Negative); Specific Gravity Urine UA 1.015 (1.000-1.035); Urobilinogen Urine UA 0.2 E.U./dL (0.2)
[2021-10-05 13:22] LABS: Bacteria Urine Many (>30); Culture Indicated Urine Specimen Cultured; RBC Urine None Seen (0-5/HPF); Squamous Epithelial Cell Urine 1-5 /HPF (0-5/HPF); WBC Urine 5-10/HPF (0-5/HPF)
[2021-10-05 13:53] LABS: Fetal Fibronectin Negative
--- NOTE | 2021-10-05 14:12 | DI.US.S_ITS ---
PROCEDURE: US OB >= 14 WEEKS FETUS INDICATIONS: missed most OB appt OUTSIDE/PRIOR DATING DATA: Last menstrual period (LMP): 02/16/21. LMP-based estimated date of delivery (MARGARET): 11/23/21. First dating scan (date and location): 04/28/21. Estimated date of delivery (MARGARET) from first dating scan: 11/30/21. The calculations are made using the ultrasound MARGARET of 11/30/21. TECHNIQUE: Real-time scanning was performed of the fetus, with image documentation and biometric measurements. Endovaginal scanning: For improved cervical detail COMPARISON: [facility], US, US OB >= 14 WEEKS FETUS, 08/16/2021, 15:58. FINDINGS: General: A single living intrauterine gestation is present. Presentation: Breech. Placenta: Placental position is posterior , without previa. Amniotic fluid index: 8.3 cm, normal range is 5-24 cm. Single deepest vertical pocket is 3.0 cm. heart rate: 158 beats per minute. Maternal cervical canal: Closed and 2.2 cm long. Cerclage device seen. Normal lower limit is 2.5 cm. biometrics: Biparietal diameter: 7.2 cm, 29 weeks, 0 days Head circumference: 28.1 cm, 30 weeks, six days Abdominal circumference: 29.3 cm, 33 weeks, two days Femur length: 5.9 cm, 30 weeks, six days Clinically estimated gestational age: 32 weeks, 0 days Composite gestational age from present scan: 31 weeks, 0 days Estimated weight and percentile: 1867 g, 36th percentile Anatomic survey: Limited due to gestational age. Neuro: No obvious lateral ventricular dilatation. Other intracranial contents are not well seen. Nuchal skin fold: Not applicable Face: Not well seen Spine: Skin overlying the spine is not well seen. Heart: Suboptimal imaging. Diaphragm: Not seen Stomach: Left-sided stomach is present. Kidneys: No hydronephrosis. Normal is less than 5 mm in 2nd trimester, less than 7 mm in 3rd trimester. Cord: Not seen Bladder: Normal in size. Extremities: Not well seen IMPRESSION: 1. Single living intrauterine in breech presentation. 2. Short, but closed cervix with cerclage device in place. 3. Suboptimal anatomic survey due to increased gestational age. We strive to produce accurate, complete, and clear reports of imaging services. To assist us in improving patient care, this report was composed using standard report templates and voice recognition software. Therefore, it may contain abnormal punctuation, insertions and/or omissions. Occasional wrong-word or sound-alike substitutions may occur. Though we review the report and make efforts to correct it, we do recommend that the report be read carefully in proper context to recognize any text inaccuracies. Dictated by: Sherlyn Caldwell M.D. on 10/05/2021 at 16:49 Approved by: Sherlyn Caldwell M.D. on 10/05/2021 at 16:59
--- NOTE | 2021-10-12 06:29 | P.TNLD_ITS ---
Visit Information Visit Information Date of evaluation: 10/05/21 Primary OB Provider: Lauren Costello Reason for Evaluation: Yes rupture of membranes COUNTS INCLUDE 234 BEDS AT THE [facility] Medical History (Updated 08/01/21 @ 13:23 by Lauren Costello MD) Alcohol use disorder Anemia Anxiety Chlamydia (~2014) Dizzy Hearing loss Family History (Updated 04/26/21 @ 20:36 by Libra Fernandez) Grandmother Anemia Hypertension Diabetes mellitus Mother Autosomal recessive severe combined immunodeficiency disease Grandfather Dementia Social History marital status: details: With new partner number of children: 0 household members: friend(s) lives independently: Yes caregiver/support person: Yes housing: house pets and animals: Yes (kittens) education level: college occupational status: employed current occupational exposures/hazards: No seatbelt use: always water heater temp set < 120 deg: Yes working smoke detector in home: Yes fire extinguisher in home: No carbon monox detector in home: No (will get) firearms in home: No do you feel safe at home: Yes Smoking Status: Former smoker alcohol intake: former substance use type: does not use during the past year weight has: remained stable well-balanced diet: daily or most days daily servings fruits/ve or more times/day caffeine: Yes (limit to 200 mg daily) Type(s) of exercise: walking Evaluation Evaluation Baseline heart rate: 150 Variability: Average (6-10) monitor accelerations: Present Monitor Decelerations: Absent Contraction Frequency (minutes): 0 Category of Tracing: Reactive Non-invasive Membranes Rupture Test: negative Diagnosis, Plan/Disposition Plan/Disposition Plan: Assessment: 41-year-old 2 para 0100 32 weeks gestation Negative AmniSure Plan: Discharge to home Follow-up in 2 weeks for scheduled OB visit OB Disposition: home
== END 2021-10-05 15:00 | disposition home or self-care (01) ==
PROVIDERS: Admitting Provider Obstetrics & Gynecology; Referring Provider Obstetrics & Gynecology; Visit Provider Obstetrics & Gynecology
DX: O42.90 Premature rupture of membranes, unspecified as to length of time between rupture and onset of labor, unspecified weeks of gestation (principal); Z3A.32 32 weeks gestation of pregnancy
CPT/HCPCS: 59025; 76811; 76817; 81001; 82731; 84112; 87086; G0378; G0379

== ENCOUNTER → 2021-10-20 08:24 | Outpatient (CLI) | payer OTHER, MEDICAID, SELFPAY ==
[2021-10-20 09:53] LABS: Glucose Fasting Gestational 98 mg/dL (76-95)
[2021-10-20 10:42] LABS: Glucose 1 Hour Gest 124 mg/dL (76-180)
[2021-10-20 11:30] LABS: Glucose 2 Hour Gest 158 mg/dL (76-155)
[2021-10-20 11:42] LABS: Glucose Tol Interp,Gestational INTERPRETATION
[2021-10-20 12:37] LABS: Glucose 3 Hour Gest 137 mg/dL (76-140)
[2021-10-22 07:25] LABS: Hepatitis B Surf Ab Qualitativ Reactive (.)
[2021-10-24 14:46] LABS: Alanine Aminotransferase 17 IU/L (<35)
[2021-10-24 16:17] LABS: Hepatitis B Surface Antigen NEGATIVE s/c (NEGATIVE)
[2021-10-24 16:33] LABS: HIV 1 & 2 Ab/Ag 4th Gen Combo NEGATIVE (NEGATIVE); Hep C Virus Ab w/Reflex Quant NEGATIVE s/c (NEGATIVE)
== END ==
PROVIDERS: Referring Provider Obstetrics & Gynecology; Visit Provider Obstetrics & Gynecology
DX: O99.810 Abnormal glucose complicating pregnancy (principal)
CPT/HCPCS: 36415; 82951; 82952

== ENCOUNTER 2021-10-20 14:23 | Observation (INO) | payer OTHER, MEDICAID, SELFPAY ==
[2021-10-20 15:33] LABS: Add Manual Diff / Slide Review SLIDE REVIEW; Basophils Absolute Auto 100 /uL (0-100); Basophils Percent Auto 0.8 % (0-2); Eosinophils Absolute Auto 100 /uL (0-450); Eosinophils Percent Auto 0.7 % (2-4); Hematocrit 37.2 % (36-46); Lymphocytes Absolute Auto 2800 /uL (1100-4500); Lymphocytes Percent Auto 28.1 % (25-40); Mean Corpuscular HGB Conc 35.1 % (30-36); Mean Corpuscular Hemoglobin 31.9 PG (26-34); Monocytes Absolute Auto 700 /uL (0-900); Monocytes Percent Auto 7.2 % (3-14); Neutrophils Absolute Auto 6400 /uL (1500-7000); Neutrophils Percent Auto 63.2 % (50-75); Platelet Count 208 X10^3/uL (150-400); Red Blood Cell Count 4.08 X10^6/uL (4.0-5.2); White Blood Cell Count 10.1 X10^3/uL (4.5-11.0)
[2021-10-20 15:38] LABS: Aspartate Aminotransferase 29 IU/L (14-36); BUN Creatinine Ratio 16.4 (6-22); Blood Urea Nitrogen 9 mg/dL (7-17); Estimated Glomerular Filt Rate > 60 mL/min (>60); Uric Acid 3.8 mg/dL (2.5-6.2)
[2021-10-20 16:05] LABS: Platelet Estimate Adequate on smear; RBC Morphology Normal Morphology
[2021-10-20 16:32] LABS: Creatinine Urine Random 92.7 mg/dL; Protein (Total) Urine Random 17 mg/dL (0-12); Protein Creatinine Ratio Urine 0.18 GRAM/24H
== END 2021-10-20 17:30 | disposition home or self-care (01) ==
PROVIDERS: Admitting Provider Obstetrics & Gynecology; Referring Provider Obstetrics & Gynecology; Visit Provider Obstetrics & Gynecology
DX: O99.810 Abnormal glucose complicating pregnancy (principal); Z3A.34 34 weeks gestation of pregnancy
CPT/HCPCS: 36415; 59025; 59050; 82570; 82951; 82952; 84156; 84450; 84550; 85025; G0378; G0379

== ENCOUNTER → 2021-10-27 13:58 | Outpatient (CLI) | payer OTHER, MEDICAID, SELFPAY ==
[2021-10-27 14:20] LABS: Add Manual Diff / Slide Review NO; Basophils Absolute Auto 100 /uL (0-100); Basophils Percent Auto 0.7 % (0-2); Eosinophils Absolute Auto 100 /uL (0-450); Eosinophils Percent Auto 0.5 % (2-4); Hematocrit 37.7 % (36-46); Hemoglobin 12.8 g/dL (12.0-16.0); Lymphocytes Absolute Auto 3000 /uL (1100-4500); Lymphocytes Percent Auto 28.5 % (25-40); Mean Corpuscular HGB Conc 34.1 % (30-36); Mean Corpuscular Hemoglobin 31.2 PG (26-34); Mean Corpuscular Volume 91.6 fL (80-100); Monocytes Absolute Auto 800 /uL (0-900); Monocytes Percent Auto 7.3 % (3-14); Neutrophils Absolute Auto 6500 /uL (1500-7000); Platelet Count 213 X10^3/uL (150-400); Red Blood Cell Count 4.11 X10^6/uL (4.0-5.2); Red Cell Distribution Width 12.8 % (11.6-14.8); White Blood Cell Count 10.4 X10^3/uL (4.5-11.0)
[2021-10-27 14:40] LABS: Alanine Aminotransferase 18 IU/L (<35); Aspartate Aminotransferase 27 IU/L (14-36); BUN Creatinine Ratio 26.7 (6-22); Blood Urea Nitrogen 16 mg/dL (7-17); Estimated Glomerular Filt Rate > 60 mL/min (>60); Uric Acid 3.7 mg/dL (2.5-6.2)
== END ==
PROVIDERS: Referring Provider Obstetrics & Gynecology; Visit Provider Obstetrics & Gynecology
DX: O16.3 Unspecified maternal hypertension, third trimester (principal); Z3A.35 35 weeks gestation of pregnancy
CPT/HCPCS: 36415; 82565; 84450; 84460; 84520; 84550; 85025

== ENCOUNTER 2021-10-27 14:12 | Outpatient (CLI) | payer OTHER, MEDICAID, SELFPAY | END 2021-10-27 15:28 | disposition home or self-care (01) | LOC: LABOR 14:53 → OB 10-28 07:24 | PROVIDERS: Referring Provider Obstetrics & Gynecology; Visit Provider Obstetrics & Gynecology | DX: O13.3 Gestational [pregnancy-induced] hypertension without significant proteinuria, third trimester (principal); Z3A.35 35 weeks gestation of pregnancy | CPT/HCPCS: 36415; 59025; 82565; 84450; 84460; 84520; 84550; 85025; G0378; G0379 ==

== ENCOUNTER 2021-11-04 12:15 | Outpatient (CLI) | payer OTHER, MEDICAID, SELFPAY | END 2021-11-04 13:55 | disposition home or self-care (01) | LOC: LABOR 12:29 → OB 11-08 08:36 | PROVIDERS: Referring Provider Obstetrics & Gynecology; Visit Provider Obstetrics & Gynecology | DX: O13.3 Gestational [pregnancy-induced] hypertension without significant proteinuria, third trimester (principal); O47.03 False labor before 37 completed weeks of gestation, third trimester; O09.523 Supervision of elderly multigravida, third trimester; Z3A.36 36 weeks gestation of pregnancy; Z34.83 Encounter for supervision of other normal pregnancy, third trimester | CPT/HCPCS: 59025; 59050; 87653; G0378; G0379 ==

== ENCOUNTER → 2021-11-04 14:38 | Outpatient (CLI) | payer OTHER, MEDICAID, SELFPAY ==
[2021-11-05 13:45] LABS: Strep Grp B PCR NEG for Grp B Strep
== END ==
PROVIDERS: Visit Provider Obstetrics & Gynecology
DX: Z34.83 Encounter for supervision of other normal pregnancy, third trimester (principal); Z3A.36 36 weeks gestation of pregnancy
CPT/HCPCS: 87653